=== PATIENT | female | born 1995 | race African-American/Black ===

== ENCOUNTER 2024-07-10 13:30 | Outpatient (CLI) | payer MEDICAID ==
[~2024-07-10] VITALS: Ht 170.2 cm; Wt 52.3 kg
[~2024-07-10 13:30] MED LIST: CEPHALEXIN500 M1 PO
[2024-07-10 13:40] VITALS: BP 100/59; PULSE 98; TEMP 98.8
[2024-07-10] MEDS ORDERED: ZOFRAN ODT8 MG PO (13:54)
[2024-07-10 14:05] VITALS: BP 96/61; PULSE 96
[2024-07-10] MEDS ORDERED: LR 1,000 ML IV PRN (14:15)
--- NOTE | 2024-07-10 14:34 | NUR ---
1340 PATIENT HERE FOR COMPLAINTS OF LEFT SIDED ABD PAIN. PATIENTS STATES" SHE HAS HAD VOMITING AND DIARHEA FOR 3 DAYS, DR HAYWOOD GAVE SOME MEDICINE TO HELP WITH VOMITING. EFM ON FHT 130 BABY VERY ACTIVE AND OCCASIONAL VARIABLES NOTED. NO CONTRACTIONS NOTED OR PALPATED. ABD SOFT. FULL ASSESSMENT COMPLETED. DENIES NEEDS AT THIS TIME. PATIENT SPEAKS MINIMAL GUATEMALAN BUT FLUENT GUATEMALAN. DR HAYWOOD CALLED AND UPDATED ON ALL ABOVE INFORMATION. ORDERS GIVEN FOR LABS AND IVF.
--- NOTE | 2024-07-10 14:40 | NUR ---
ASSUMED CARE OF PT AT 1430, INTRODUCED PT AND TO THIS NURSE AND PLAN OF CARE. +FM, NO BLEEDING OR LEAKING OF FLUIDS, PT STATES PAIN IS BETTER ON LOWER LEFT SIDE RATING A 3 ON 1-10 SCALE. LET PT KNOW WE ARE WAITING ON LAB RESULTS TO COME BACK. LAB CALLED AT 1450, NEED MORE URINE TO RUN UA. EFM OFF AT 1455, PT UP TO BATHROOM, CLEAN CATCH UA OBTAINED AND SENT TO LAB. PT BACK ON MONITOR ON LEFT SIDE AT 1457.
--- NOTE | 2024-07-10 14:43 | NUR ---
1405 IVF STARTE DIN LEFT AND LR BOLUS STARTED WITH LABS. LABS SENT TO LAB
[2024-07-10 14:50] VITALS: BP 91/60; PULSE 90; TEMP 98
[2024-07-10 14:52] LABS: BASO % 0.3 % (0.0-2.0); EOS # 0.1 K/mm3 (0.0-0.7); EOS % 0.4 % (0.0-4.0); GRAN # 8.7 K/mm3 (1.4-6.5); GRAN % 75.6 % (42.2-75.2); HEMOGLOBIN 11.9 g/dl (12.5-16.0); LYMPH # 1.9 K/mm3 (1.2-3.4); LYMPH % 16.2 % (20.0-51.0); MEAN CELL VOLUME 100 fl (80.0-100.0); MEAN CORPUSCULAR HEMOGLOBIN 34 pg (27-31); MEAN CORPUSCULAR HGB CONC 34 g/dl (33.0-37.0); MEAN PLATELET VOLUME 9.3 fl (7.4-10.4); MONO # 0.8 K/mm3 (0.1-0.6); PLATELET COUNT 224 K/mm3 (130-400); RED BLOOD COUNT 3.51 M/mm3 (4.10-5.30); REDCELL DISTRIBUTION WIDTH-CV 14.3 % (11.5-14.5)
[2024-07-10 14:55] LABS: HEMATOCRIT 35.1 % (37.0-47.0)
[2024-07-10 15:15] LABS: COLLECTION METHOD CLEAN CATCH
[2024-07-10 15:18] LABS: URINE APPEARANCE CLEAR (CLEAR/HAZY); URINE BLOOD NEGATIVE (NEGATIVE); URINE COLOR YELLOW (YELLOW); URINE GLUCOSE NEGATIVE (NEGATIVE); URINE KETONE NEGATIVE (NEGATIVE); URINE NITRATE NEGATIVE (NEGATIVE); URINE PROTEIN(semi-quant) NEGATIVE (NEGATIVE); URINE UROBILINOGEN 0.2 E.U/dL (0.2-1.0)
[2024-07-10 15:27] LABS: ALANINE AMINOTRANSFERASE 14 U/L (0-55); ALKALINE PHOSPHATASE 65 U/L (40-150); ANION GAP 11 mmol/L (7-16); AST,SGOT 22 U/L (5-34); BILIRUBIN,TOTAL 0.1 mg/dL (0.2-1.2); BLOOD UREA NITROGEN < 5 mg/dL (7-19); CALCIUM 9.2 mg/dL (8.4-10.2); CHLORIDE 109 mEq/L (98-107); CREATININE, serum 0.62 mg/dL (0.57-1.11); GLUCOSE 91 mg/dL (70-99); POTASSIUM 3.9 mEq/L (3.5-4.5); SODIUM 137 mEq/L (136-145); TOTAL PROTEIN 6.4 g/dl (6.2-8.1)
[2024-07-10 15:50] VITALS: BP 96/59; PULSE 92
--- NOTE | 2024-07-10 15:50 | NUR ---
HOME INSTRUCTIONS GIVEN AND DISCHARGE PAPERWORK SIGNED BY SIGNIFICANT OTHER, QUESTIONS ADDRESSED. IV/INT DC'D PER ORDER, TAPE/COTTON APPLIED, NO BLEEDING NOTED. PT DRESSED, WALKED OUT IN STABLE CONDITION WITH SIGNIFCANT OTHER/FOB.
== END 2024-07-10 15:56 | disposition home or self-care (01) ==
LOC: LDRO 13:30
PROVIDERS: Obstetrics & Gynecology
DX: O26.892 Other specified pregnancy related conditions, second trimester (principal); R10.9 Unspecified abdominal pain; Z3A.23 23 weeks gestation of pregnancy